=== PATIENT | female | born 1960 | race Caucasian/White ===

== ENCOUNTER → 2016-08-07 | Outpatient (CLI) | payer BC | LOC: FIMAGING 07:22 | PROVIDERS: ATTEND Internal Medicine | DX: Z13.6 Encounter for screening for cardiovascular disorders (principal); Z82.49 Family history of ischemic heart disease and other diseases of the circulatory system | CPT/HCPCS: G0202 ==

== ENCOUNTER → 2016-09-17 | Outpatient (CLI) | payer BC | LOC: FIMAGING 09:46 | PROVIDERS: ATTEND Internal Medicine | DX: Z13.820 Encounter for screening for osteoporosis (principal); M85.80 Other specified disorders of bone density and structure, unspecified site; Z82.62 Family history of osteoporosis ==

== ENCOUNTER → 2018-02-17 | Outpatient (CLI) | payer BC | LOC: BMCIMAGING 12:51 | PROVIDERS: ATTEND Internal Medicine | DX: D25.1 Intramural leiomyoma of uterus (principal); N83.01 Follicular cyst of right ovary ==

== ENCOUNTER → 2018-08-06 | Outpatient (CLI) | payer OTHER | LOC: BMCIMAGING 09:00 | PROVIDERS: ATTEND Internal Medicine | DX: D25.9 Leiomyoma of uterus, unspecified (principal); N84.0 Polyp of corpus uteri; N83.201 Unspecified ovarian cyst, right side ==